=== PATIENT | female | born 1995 | race Caucasian/White ===

== ENCOUNTER → 2018-01-02 | Outpatient (REF) | payer BC | LOC: M LAB REF 13:49 | DX: Z12.4 Encounter for screening for malignant neoplasm of cervix (principal) | CPT/HCPCS: G0123 ==

== ENCOUNTER → 2018-03-17 | Outpatient (CLI) | payer BC ==
[2018-03-17 17:30] LABS: BASO # 0.1 10^3/uL (0.0-0.2); BASO % 0.5 % (0.0-1.0); EOS # 0.2 10^3/uL (0.0-0.50); EOS % 1.1 % (0.0-3.0); HEMATOCRIT 37.4 % (36.0-47.0); HEMOGLOBIN 12.6 g/dl (12.0-15.5); IMMATURE GRANULOCYTE % 0.3 % (0-3.0); LYMPH # 3.2 10^3/uL (1.5-6.5); MEAN CORPUSCULAR HEMOGLOBIN 29.9 pg (27.0-33.0); MEAN CORPUSCULAR HGB CONC 33.7 g/dl (32.0-36.5); MEAN CORPUSCULAR VOLUME 88.8 fl (80.0-96.0); MONO # 0.9 10^3/uL (0.0-0.8); NEUTROPHILS # 8.9 10^3/uL (1.8-7.7); NEUTROPHILS % 67.1 % (36.0-66.0); PLATELET COUNT, AUTOMATED 209 10^3/uL (150-450); RED BLOOD COUNT 4.21 10^6/uL (4.00-5.40); RED CELL DISTRIBUTION WIDTH 11.6 % (11.5-14.5); WHITE BLOOD COUNT 13.2 10^3/uL (4.0-10.0)
[2018-03-17 21:26] LABS: CHLAMYDIA DNA AMPLIFICATION NEGATIVE (NEGATIVE); GC DNA AMPLIFICATION NEGATIVE (NEGATIVE)
[2018-03-20 11:32] LABS: HBsAg Prenatal NEGATIVE (NEGATIVE); HIV 1&2 SCREEN CENTAUR NEGATIVE (NEGATIVE); RUBELLA IgG QUALITATIVE IMMUNE (IMMUNE)
== END ==
LOC: M SMT 15:17
DX: Z34.81 Encounter for supervision of other normal pregnancy, first trimester (principal); Z36.89 Encounter for other specified antenatal screening; Z3A.09 9 weeks gestation of pregnancy
CPT/HCPCS: 86762

== ENCOUNTER → 2018-06-02 | Outpatient (CLI) | payer OTHER ==
--- NOTE | 2018-06-02 10:58 | REP ---
OBSTETRIC SONOGRAPHY: HISTORY: Supervision of . For anatomy. FINDINGS: Scanning through the gravid uterus demonstrates a viable single intrauterine gestation in a cephalic lie. motion is observed and heart rate is recorder 153 beats per minute. An anterior grade 1 placenta is seen without evidence of previa or abruption. Amniotic fluid is subjectively normal. Closed cervical length is 4.4 cm. No extrauterine abnormalities observed. No anomaly is seen. The left and right ventricular cardiac outflow tract views are less than optimally seen due to lie. The following additional anatomic structures are identified and felt to be sonographically unremarkable: cranium, choroid plexus, cavum, cerebellum posterior fossa, face and profile, lungs, four-chamber heart, diaphragm, left-sided stomach, abdominal wall cord insertion, three-vessel cord, kidneys and bladder, spine, upper and lower extremities. Biometry Chart: BPD 4.5 cm = 19 weeks 5 days HC 16.7 cm = 19 weeks 2 days AC 14.3 cm = 19 weeks 5 days FL 3.2 cm = 19 weeks 6 days HL 3.1 cm = 20 weeks 3 days CD 1.9 cm = 18 weeks 5 days HC/AC ratio normal 1.16 Cephalic index normal 0.76. Estimated weight 308 grams, 0 pounds 10 ounces, 37th percentile for 20 weeks 0 days. IMPRESSION: Viable single intrauterine gestation at 19 weeks 3 days by today's composite sonographic criteria. ROSALEE by today's sonography October 24, 2018. anatomic survey is complete except for visualization of the left and right ventricular cardiac outflow tracts. Electronically Signed by Antoni Sunshine MD 06/02/2018 07:49 P
== END ==
LOC: M SMT 08:31
PROVIDERS: ATTEND Specialist
DX: Z36.89 Encounter for other specified antenatal screening (principal); Z3A.19 19 weeks gestation of pregnancy

== ENCOUNTER → 2018-06-26 | Outpatient (CLI) | payer OTHER ==
--- NOTE | 2018-06-26 09:15 | REP ---
Obstetric ultrasound for anatomy follow-up: Comparison is 06/02/2018. On the comparison study. The cardiac right and left ventricular outflow tracts could not optimally be demonstrated. The anatomy previously otherwise was unremarkable. On the study today there is again a single intrauterine gestation. The fetus is in a footling breech presentation. The placenta is anterior without previa or abruptio. The inferior tip of the placenta is 4.5 cm above the internal cervical os. heart rate is 147 beats per minute. The cervix measures 5.4 cm length. By the ultrasound today the gestational age is 22 weeks 4 days/ROSALEE 10/26/2018. By the first ultrasound gestational age is 23 weeks 3 days/ROSALEE 10/20/2018. By LMP the gestational age is 23 weeks 3 days/ROSALEE 10/20/2018. weight is 542 grams (1 pound, 3 ounces). This is the 29th percentile for 20 3 weeks 3 days. anatomy: The right and left cardiac ventricular outflow tracts are adequately demonstrated and are unremarkable. The following anatomic structures are again identified and are unremarkable: Intracranial lateral ventricles. Choroid plexus Cerebellum Face Upper lip. The lungs Four-chamber heart Diaphragm. Stomach. Cord insertion. Three-vessel cord. Kidneys Bladder Spine Upper lower extremities The facial profile is not optimally demonstrated on the study today, however, was adequately demonstrated previously. No anomalies are identified Electronically Signed by Tal Cooper MD 06/26/2018 09:07 A
== END ==
LOC: M SMT 07:48
PROVIDERS: ATTEND Obstetrics & Gynecology
DX: O32.8XX0 Maternal care for other malpresentation of fetus, not applicable or unspecified (principal); Z36.2 Encounter for other antenatal screening follow-up; Z3A.23 23 weeks gestation of pregnancy

== ENCOUNTER → 2018-07-11 | Outpatient (CLI) | payer OTHER ==
[2018-07-11 13:53] LABS: HEMATOCRIT 34.9 % (36.0-47.0); HEMOGLOBIN 11.5 g/dl (12.0-15.5); MEAN CORPUSCULAR HEMOGLOBIN 31.2 pg (27.0-33.0); MEAN CORPUSCULAR VOLUME 94.6 fl (80.0-96.0); PLATELET COUNT, AUTOMATED 215 10^3/uL (150-450); RED BLOOD COUNT 3.69 10^6/uL (4.00-5.40); WHITE BLOOD COUNT 15.2 10^3/uL (4.0-10.0)
== END ==
LOC: M SMT 09:06
PROVIDERS: ATTEND Obstetrics & Gynecology
DX: Z36.89 Encounter for other specified antenatal screening (principal)

== ENCOUNTER → 2018-09-20 | Outpatient (REF) | payer OTHER | LOC: M LAB REF 12:54 | PROVIDERS: ATTEND Specialist | DX: Z34.03 Encounter for supervision of normal first pregnancy, third trimester (principal); Z3A.00 Weeks of gestation of pregnancy not specified ==

== ENCOUNTER → 2018-10-04 | Outpatient (CLI) | payer OTHER ==
[~2018-10-04] MED LIST: COLA100C5 PO; IBUP-1114 PO; MAPA500T2 PO; MOM30SS PO; PERC5TAB12 PO; PRENTAB9 PO
[2018-10-04 10:27] LABS: HEMATOCRIT 35.8 % (36.0-47.0); HEMOGLOBIN 11.5 g/dl (12.0-15.5); MEAN CORPUSCULAR HEMOGLOBIN 29.5 pg (27.0-33.0); MEAN CORPUSCULAR HGB CONC 32.1 g/dl (32.0-36.5); MEAN CORPUSCULAR VOLUME 91.8 fl (80.0-96.0); PLATELET COUNT, AUTOMATED 232 10^3/uL (150-450); WHITE BLOOD COUNT 15.6 10^3/uL (4.0-10.0)
[2018-10-04 10:49] LABS: CREATININE,RANDOM URINE 60.2 MG/DL
[2018-10-04 10:51] LABS: ALT/SGPT 13 U/L (12-78); BILIRUBIN,TOTAL 0.2 MG/DL (0.2-1.0); CREATININE FOR GFR 0.52 MG/DL (0.55-1.30); GLOMERULAR FILTRATION RATE > 60.0 (>60); LDH LACTATE DEHYDROGENASE 172 U/L (84-246)
== END ==
LOC: M SMT 09:09
PROVIDERS: ATTEND Advanced Practice Midwife
DX: O16.3 Unspecified maternal hypertension, third trimester (principal); Z3A.00 Weeks of gestation of pregnancy not specified

== ENCOUNTER 2018-10-05 08:37 | Inpatient (IN) | payer OTHER ==
[~2018-10-05] VITALS: Ht 162.6 cm; Wt 78.3 kg
[2018-10-05] VITALS (20 sets, daily range): BP systolic 109–140; BP diastolic 55–87
[2018-10-05] MEDS ORDERED: PRENTAB9 PO (08:54)
[2018-10-05] MEDS ORDERED: MAPA500T2 PO (08:54)
[2018-10-05] MEDS: miSOPROStol 50 MCG 1/2 TAB (S0191) SL SCH ×2 (10:09→14:04)
[2018-10-05 10:16] LABS: MEAN CORPUSCULAR HEMOGLOBIN 29.5 pg (27.0-33.0); MEAN CORPUSCULAR HGB CONC 32.4 g/dl (32.0-36.5); MEAN CORPUSCULAR VOLUME 91.2 fl (80.0-96.0); PLATELET COUNT, AUTOMATED 219 10^3/uL (150-450); RED BLOOD COUNT 3.73 10^6/uL (4.00-5.40); WHITE BLOOD COUNT 14.6 10^3/uL (4.0-10.0)
--- NOTE | 2018-10-05 10:28 | HPE ---
DATE OF ADMISSION: 10/05/2018 HISTORY: 23-year-old, (G) 1, para (P) 0 female, at 38-0/7 weeks gestation by last menstrual period (LMP) consistent with 8 week ultrasound, estimated date of confinement (EDC) of 10/19/2018, presents for labor induction with the indication of gestational hypertension. She blood pressure in the office at 170/70, which was confirmed on repeat. She has had a headache for 3-4 days unrelieved by medications. She denies contractions or vaginal bleeding. She has had increased swelling in her lower extremities. COURSE: The patient initiated care at 9 weeks gestation on 03/17/2018. Her first trimester blood pressure was 110/66, weight 137 pounds. course unremarkable until she started developing an elevated blood pressure on 10/04/2018. MEDICAL HISTORY: Noncontributory. SURGICAL HISTORY: 1. Cyst removed from her left wrist. 2. Excision of pilonidal cyst. ALLERGIES: AMOXICILLIN. SOCIAL HISTORY: The patient is . She denies cigarettes, alcohol or drug use. Lives in [place]. FAMILY HISTORY: Noncontributory. PHYSICAL EXAM: Blood pressure 135/74. Pulse 107. Respiratory rate 16. She is in no apparent distress. Head and neck exam normal. Lungs: Clear. Heart: Regular rate and rhythm. Abdomen: Nontender, gravid. heart tones category 1. Contractions irregular. Sterile vaginal exam: 1 cm, 50% and -2, posterior, soft vertex. Extremities: Nontender with 1+ lower extremity edema. LABS: Blood type A positive. Rubella immune. RPR nonreactive. Hepatitis B and C negative. HIV negative. GBS negative on 09/20/2018. ASSESSMENT: 23-year-old, 1, para 0 female, at 38-0/7 weeks gestation with gestational hypertension as well as headaches unresolved with medication. PLAN: Admit for labor induction. The patient is admitted on 10/05/2018. Risks and benefits were discussed.
[2018-10-05] MEDS ORDERED: OXYTOCIN DRIP 30 UNITS in APPROPRIATE DILUENT 1 EA IV SCH (20:00)
[2018-10-05] MEDS: LR 1,000 ML IV SCH (21:08)
[2018-10-06] VITALS (27 sets, daily range): BP systolic 100–143; BP diastolic 54–82
[2018-10-06] MEDS ORDERED: PROMETHAZINE INJ 25 MG/ML VIAL (J2550) IV ONE (08:15)
[2018-10-06] MEDS ORDERED: BUTORPHANOL 2 MG/ML INJ (J0595) IV ONE (08:15)
[2018-10-06] MEDS: LR 1,000 ML IV SCH ×2 (09:38→13:15)
--- NOTE | 2018-10-06 09:45 | IPNPDOC ---
Text Note Date of Service The patient was seen on 10/06/18. NOTE Pitocin off 0745 for intermittent late decelerations, variability maintained. Cat II UC now Q 4-5 minutes x 45-60 seconds FH Cat I, 150 baseline SVE /50/-2 Cooks cather placed using speculum, inflated with 60/40cc Pt tolerated procedure well. Resume pitocin @ 2 mu. Stadol and phenergan started for comfort Reassess in a few hours or prn Dr Lubin updated. A-FIB/CHADSVASC A-FIB History Current/History of A-Fib/PAF?: No Current PO Anticoag Therapy: No VS,Fishbone, I+O VS, Fishbone, I+O Laboratory Tests 10/05/18 10:03 Red Blood Count 3.73 L, Mean Corpuscular Volume 91.2, Mean Corpuscular Hemoglobin 29.5, Mean Corpuscular Hemoglobin Concent 32.4, Red Cell Distribution Width 12.2 Vital Signs Date Time Temp Pulse Resp B/P (MAP) Pulse Ox O2 Delivery O2 Flow Rate FiO2 10/06/18 09:22 18 10/06/18 07:18 98.4 71 121/68 (85) I&O- Last 24 Hours up to 6 AM 10/06/18 06:00 Intake Total 4262 ml Output Total 2450 ml Balance 1812 ml Akilah Cruz CNM October 06, 2018 09:45
--- NOTE | 2018-10-06 14:10 | IPNPDOC ---
Text Note Date of Service The patient was seen on 10/06/18. NOTE Pitocin has been off x 2 hours for Cat II tracing, variable and late decelerations Cat I tracing with UC 4-5 minutes apart, Cooks Catheter in place Pt status rviewed with Dr Lubin. Rec resuming pitocin at this time. VS,Fishbone, I+O VS, Fishbone, I+O Vital Signs Date Time Temp Pulse Resp B/P (MAP) Pulse Ox O2 Delivery O2 Flow Rate FiO2 10/06/18 12:23 98.5 63 18 116/60 (78) I&O- Last 24 Hours up to 6 AM 10/06/18 06:00 Intake Total 4262 ml Output Total 2450 ml Balance 1812 ml Akilah Cruz CNM October 06, 2018 14:10
[2018-10-06 14:33] LABS: HEMATOCRIT 32.1 % (36.0-47.0); HEMOGLOBIN 10.3 g/dl (12.0-15.5); MEAN CORPUSCULAR HEMOGLOBIN 30.1 pg (27.0-33.0); MEAN CORPUSCULAR HGB CONC 32.1 g/dl (32.0-36.5); MEAN CORPUSCULAR VOLUME 93.9 fl (80.0-96.0); PLATELET COUNT, AUTOMATED 201 10^3/uL (150-450); RED BLOOD COUNT 3.42 10^6/uL (4.00-5.40); WHITE BLOOD COUNT 16.6 10^3/uL (4.0-10.0)
--- NOTE | 2018-10-06 15:19 | IPNPDOC ---
Text Note Date of Service The patient was seen on 10/06/18. NOTE Catheter has been in place 5.5 hours Unable to adequately augment labor, currently tachycardic 170-180, Cat II Pitocin 6 mu, now off SVE catheter remains firmly in place, approximately 2cm dilation Dr Lubin alerted for section VS,Fishbone, I+O VS, Fishbone, I+O Laboratory Tests 10/06/18 14:17 Red Blood Count 3.42 L, Mean Corpuscular Volume 93.9, Mean Corpuscular Hemoglobin 30.1, Mean Corpuscular Hemoglobin Concent 32.1, Red Cell Distribution Width 12.0 Vital Signs Date Time Temp Pulse Resp B/P (MAP) Pulse Ox O2 Delivery O2 Flow Rate FiO2 10/06/18 14:34 81 117/66 (83) 10/06/18 14:05 97.9 18 I&O- Last 24 Hours up to 6 AM 10/06/18 06:00 Intake Total 4262 ml Output Total 2450 ml Balance 1812 ml Akilah Cruz CNM October 06, 2018 15:19
[2018-10-06] MEDS ORDERED: LACTATED RINGER'S 1000 ML IV STA (15:20)
[2018-10-06] MEDS ORDERED: AZITHROMYCIN INJ 500MG VIAL (J0456) As Ordered ONE (15:22)
[2018-10-06] MEDS ORDERED: NALOXONE INJ 0.4 MG/1 ML VIAL (J2310) IV PRN ×2 (16:00)
[2018-10-06] MEDS ORDERED: AZITHROMYCIN INJ 500 MG, VIAL MATE ADAPTER 1 EACH in D5W 250 ML IV ONE (16:00)
[2018-10-06] MEDS ORDERED: diphenhydrAMINE INJ 50MG/ML VIAL (J1200) IV PRN (16:00)
[2018-10-06] MEDS ORDERED: METOCLOPRAMIDE INJ 10MG/2ML VIAL (J2765) IV PRN (16:00)
[2018-10-06] MEDS ORDERED: BICITRA 30ML SOLN UDC PO ONE (16:00)
[2018-10-06] MEDS ORDERED: NALBUPHINE HCL 10 MG/ML AMP (J2300) IV PRN (16:00)
[2018-10-06] MEDS ORDERED: ONDANSETRON 4MG/2ML VIAL (J2405) IV PRN ×3 (16:00→17:15)
[2018-10-06] MEDS ORDERED: MORPHINE PRES-FREE INJ 10 MG/10 ML VIAL (J2274) As Ordered ONE (16:20)
[2018-10-06] MEDS ORDERED: LR 1,000 ML IV SCH ×2 (17:01→17:15)
[2018-10-06] MEDS ORDERED: OXYTOCIN DRIP 30 UNITS in APPROPRIATE DILUENT 1 EA IV SCH (17:01)
[2018-10-06 17:10] LABS: CORD GAS ABE V -2.4; CORD GAS HCO3 V 23.4 MEQ/L; CORD GAS O2 SAT V 73.6 %; CORD GAS PH V 7.344 UNITS; CORD GAS PO2 V 32.1 mmHg; CORD GAS SBC V 21.8 MEQ/L; CORD GAS TCO2 V 24.8 MEQ/L
[2018-10-06 17:15] LABS: CORD GAS HCO3 A 25.8 MEQ/L; CORD GAS O2 SAT A 43.6 %; CORD GAS PCO2 A 55.2 mmHg; CORD GAS PH A 7.288 UNITS; CORD GAS PO2 A 21.1 mmHg; CORD GAS SBC A 21.3 MEQ/L; CORD GAS TCO2 A 27.5 MEQ/L
[2018-10-06] MEDS ORDERED: PROMETHAZINE INJ 25 MG/ML VIAL (J2550) IV PRN (17:15)
[2018-10-06] MEDS ORDERED: MEASLES,MUMPS,RUBELLA VACCINE INJ (MMR-II) (90707) SC SCH (17:15)
[2018-10-06] MEDS ORDERED: MOM 30ML SUSPENSION UDC PO PRN (17:15)
[2018-10-06] MEDS ORDERED: KETOROLAC 30 MG/ML VIAL (J1885) IV PRN (17:15)
[2018-10-06] MEDS ORDERED: PERCOCET 5MG/325MG TAB PO PRN ×3 (17:15)
[2018-10-06] MEDS ORDERED: fentaNYL 100 MCG/2 ML INJECTION (J3010) IV PRN (17:15)
[2018-10-06] MEDS ORDERED: RHOGAM 300 MCG (1500 IU) INJ (J2790) IM SCH (17:15)
[2018-10-06] MEDS ORDERED: KETOROLAC 30 MG/ML VIAL (J1885) As Ordered ONE (17:29)
[2018-10-06] MEDS ORDERED: OXYTOCIN 30 UNITS IN 0.9% NaCl 500ML IV BAG (J2590) As Ordered ONE (17:29)
--- NOTE | 2018-10-06 17:38 | RO ---
DATE OF PROCEDURE: 10/06/2018 PREOPERATIVE DIAGNOSES: 1. Inability to augment labor with persistent category II heart rate tracing. 2. Gestational hypertension. POSTOPERATIVE DIAGNOSES: 1. Inability to augment labor with persistent category II heart rate tracing. 2. Gestational hypertension. PROCEDURE PERFORMED: Primary low transverse section. SURGEON: Sarah Lubin MD TIN WHIZ MACHINE OPERATOR: None. ANESTHESIA: Spinal. ESTIMATED BLOOD LOSS: 700 mL. INTRAVENOUS FLUIDS: 1500 mL of lactated Ringer's solution. URINE OUTPUT: 275 mL. SPECIMENS: Cord gases. OPERATIVE FINDINGS: Live born male infant, scores 8 and 9, weight was 6 pounds 6 ounces, 2890 grams. PREOPERATIVE ANTIBIOTICS: 2 grams of Ancef and azithromycin. INDICATION FOR OPERATION: Mrs. Ocampo is a 23-year-old 1 who presented for induction of labor secondary to gestational hypertension. Her labor was initiated with misoprostol and was switched to Pitocin augmentation secondary to late decelerations on misoprostol. There was a Cooks catheter that was placed as well. Throughout her induction course, Pitocin was discontinued several times secondary to category II tracing with late decelerations. Despite Pitocin being discontinued, she continued to have a persistent category II heart rate tracing with tachycardia and variable decelerations at which time she was consented for section with the above indication. DESCRIPTION OF PROCEDURE: After informed consent was obtained and written consent was reviewed, the patient was taken to the operating room where spinal anesthesia was placed. She was then placed in the supine position with a left lateral tilt. Post catheter was placed and set to gravity. She was then prepped and draped in a normal sterile fashion. A time-out in the operating room was then performed identifying the patient, procedure to be performed, as well as drug allergies. Anesthesia was tested and deemed to be adequate. A Pfannenstiel skin incision was then made, and this was carried down to the underlying rectus fascia. The fascia was scored, and this was extended bilaterally. The fascia was then dissected off the underlying rectus muscles both superiorly and inferiorly. The rectus muscles were in the midline. The peritoneum was then entered sharply. The vesicouterine peritoneum was then identified, it was then excised to create a bladder flap. Mobius retractor was then placed. A curvilinear incision was then made in the lower uterine segment. Amniotomy was productive of clear fluid. The head was brought to the level of the incision atraumatically and was delivered along with shoulders and corpus. Cord was clamped times two and was cut. The infant was then taken over to the warmer with a good cry. Cord gases were obtained. Placenta was then drained and delivered grossly intact. The uterus then was cleared of all clots and debris. The uterus was then closed in two layers using #0 Vicryl, first in a running locking fashion followed by a second layer for imbrication in a running nonlocking fashion. The abdomen was then suctioned. The uterine incision was reinspected and noted be hemostatic. The Mobius retractor was then removed. The anterior peritoneum was then reapproximated with #3-0 Vicryl. The rectus muscles were reapproximated with #3-0 Vicryl. The fascia was then closed with #0 Vicryl in a running nonlocking fashion. The subcutaneous tissue was then irrigated and suctioned. The subcutaneous tissue was then reapproximated with #3-0 Vicryl. Several subdermal stitches were placed of #3-0 Vicryl, and the skin was closed with #4-0 Monocryl in a subcuticular fashion. The incision was then cleaned. The patient was then taken to recovery in stable condition. Counts were correct. MTDD
[2018-10-06] MEDS: KETOROLAC 30 MG/ML VIAL (J1885) IV SCH (18:00)
[2018-10-06] MEDS: DOCUSATE SODIUM 100 MG CAP PO SCH (21:18)
[2018-10-07] MEDS: KETOROLAC 30 MG/ML VIAL (J1885) IV SCH ×3 (00:27→12:24)
[2018-10-07 02:00] VITALS: BP 115/61
[2018-10-07 05:46] VITALS: BP 125/70
--- NOTE | 2018-10-07 07:26 | IPNPDOC ---
Text Note Date of Service The patient was seen on 10/07/18. NOTE Postop #1 Feels well. OOB. Due to void. VSS, afebrile, normotensive Breasts soft Fundus firm Dressing intact Lochia rubra light without odor Legs negative PO #1 Routine care. Anticipate D/C janette VS,Fishbone, I+O VS, Fishbone, I+O Laboratory Tests 10/06/18 14:17 Red Blood Count 3.42 L, Mean Corpuscular Volume 93.9, Mean Corpuscular Hemoglobin 30.1, Mean Corpuscular Hemoglobin Concent 32.1, Red Cell Distribution Width 12.0 Vital Signs Date Time Temp Pulse Resp B/P (MAP) Pulse Ox O2 Delivery O2 Flow Rate FiO2 10/07/18 05:46 98.2 76 16 125/70 (88) 98 I&O- Last 24 Hours up to 6 AM 10/07/18 06:00 Intake Total 5125 ml Output Total 6200 ml Balance -1075 ml Akilah Cruz CNM October 07, 2018 07:26
[2018-10-07 07:36] LABS: HEMOGLOBIN 9.4 g/dl (12.0-15.5); MEAN CORPUSCULAR HGB CONC 32.4 g/dl (32.0-36.5); MEAN CORPUSCULAR VOLUME 92.7 fl (80.0-96.0); PLATELET COUNT, AUTOMATED 196 10^3/uL (150-450); RED BLOOD COUNT 3.13 10^6/uL (4.00-5.40); WHITE BLOOD COUNT 18.7 10^3/uL (4.0-10.0)
[2018-10-07] MEDS: PRENATAL VITAMINS CHEWABLE TABLET PO SCH (09:25)
[2018-10-07] MEDS: DOCUSATE SODIUM 100 MG CAP PO SCH ×2 (09:25→19:39)
[2018-10-07 10:00] VITALS: BP 122/68
[2018-10-07 14:00] VITALS: BP 112/59
[2018-10-07 17:36] VITALS: BP 120/69
[2018-10-07] MEDS: IBUPROFEN 800 MG TAB PO SCH (19:39)
[2018-10-07 22:00] VITALS: BP 133/78
[2018-10-08 02:00] VITALS: BP 116/55
[2018-10-08] MEDS: IBUPROFEN 800 MG TAB PO SCH ×2 (02:53→12:12)
[2018-10-08 06:00] VITALS: BP 116/59
[2018-10-08] MEDS: PRENATAL VITAMINS CHEWABLE TABLET PO SCH (08:34)
[2018-10-08] MEDS: DOCUSATE SODIUM 100 MG CAP PO SCH (08:34)
[2018-10-08] MEDS ORDERED: COLA100C5 PO (09:23)
[2018-10-08] MEDS ORDERED: IBUP-1114 PO (09:24)
[2018-10-08] MEDS ORDERED: MOM30SS PO (09:33)
[2018-10-08 09:51] VITALS: BP 111/63
[2018-10-08] MEDS ORDERED: PERC5TAB12 PO (10:15)
== END 2018-10-08 14:30 | disposition home or self-care (01) | DRG 788 ==
LOC: M LDI 08:37 → M OBS 10-06 18:27
PROVIDERS: ADMIT Specialist; ATTEND Specialist
PROC: 3E0DXGC Introduction of Other Therapeutic Substance into Mouth and Pharynx, External Approach (ICD-10-PCS; 2018-10-05)
PROC: 10D00Z1 Extraction of Products of Conception, Low, Open Approach (ICD-10-PCS; principal; 2018-10-06 15:20)
DX: O13.4 Gestational [pregnancy-induced] hypertension without significant proteinuria, complicating childbirth (principal); Z37.0 Single live birth; Z3A.38 38 weeks gestation of pregnancy; O61.0 Failed medical induction of labor

== ENCOUNTER → 2020-01-02 | Outpatient (REF) | payer OTHER ==
[2020-01-02 16:56] LABS: BASO # 0.1 10^3/uL (0.0-0.2); BASO % 0.5 % (0.0-1.0); EOS # 0.1 10^3/uL (0.0-0.5); EOS % 0.9 % (0.0-3.0); HEMATOCRIT 38.5 % (36.0-47.0); HEMOGLOBIN 12.6 g/dl (12.0-15.5); MEAN CORPUSCULAR HEMOGLOBIN 29.9 pg (27.0-33.0); MEAN CORPUSCULAR HGB CONC 32.7 g/dl (32.0-36.5); MEAN CORPUSCULAR VOLUME 91.2 fl (80.0-96.0); MONO # 1.1 10^3/uL (0.0-0.8); MONO % 8.2 % (0.0-5.0); NEUTROPHILS # 8.6 10^3/uL (1.5-8.5); NEUTROPHILS % 67.1 % (36.0-66.0); PLATELET COUNT, AUTOMATED 219 10^3/uL (150-450); RED BLOOD COUNT 4.22 10^6/uL (4.00-5.40); WHITE BLOOD COUNT 12.9 10^3/uL (4.0-10.0)
[2020-01-02 17:34] LABS: CHLAMYDIA DNA AMPLIFICATION NEGATIVE (NEGATIVE); GC DNA AMPLIFICATION NEGATIVE (NEGATIVE)
[2020-01-02 18:46] LABS: HEPATITIS C VIRUS ABY INDEX 0.2 INDEX (<0.8); HIV 1&2 SCREEN CENTAUR NEGATIVE (NEGATIVE)
== END ==
LOC: M LABSMT 13:37
PROVIDERS: ATTEND Advanced Practice Midwife
DX: O34.219 Maternal care for unspecified type scar from previous cesarean delivery (principal)

== ENCOUNTER → 2020-03-05 | Outpatient (CLI) | payer OTHER ==
--- NOTE | 2020-03-05 11:46 | REP ---
INDICATION: ANATOMY COMPARISON: None. TECHNIQUE: Transabdominal obstetrical ultrasound with color Doppler evaluation. FINDINGS: Examination demonstrates a single live intrauterine in variable presentation. motion is identified by technologist. Placenta is noted posterior and grade 1 without evidence for placenta previa or abruption. Amniotic fluid volume is normal. Cervix measures 4.2 cm in length and appears closed. No evidence for nuchal cord. Gestational age by LMP 18 weeks 5 days with ROSALEE 08/01/2020. Gestational age by current measurements 18 weeks 2 days with ROSALEE 08/04/2020. FHR equals 160 beats per minute. BPD: 4.0 cm 18 weeks 2 days HC: 15.0 cm 18 weeks 1 day AC: 12.4 cm 18 weeks 0 days FL: 2.7 cm 18 weeks 1 day HL: 2.7 cm 18 weeks 5 days HC/AC: 1.22 Estimated weight 223 grams (15thpercentile). Anatomical assessment demonstrates normal structures including cranium, choroid plexus, cavum, cerebellum/posterior fossa, facial features, lungs, four-chamber heart/ventricular outflow tracts, diaphragm, stomach, cord insertion/three-vessel cord, kidneys/bladder, spine, and extremities. Echogenic focus within the left cardiac ventricle likely prominent chordae tendineae. IMPRESSION: 1. Single live intrauterine demonstrating appropriate interval growth and estimated weight. 2. Images of the heart and left cardiac ventricular outflow tract demonstrate echogenic focus likely prominent chordae tendinae. Remainder of the anatomical assessment is complete and normal. <Electronically signed by Luis Hernandez > 03/05/20 [id number]
== END ==
LOC: M WHC 09:53
PROVIDERS: ATTEND Obstetrics & Gynecology
DX: Z34.92 Encounter for supervision of normal pregnancy, unspecified, second trimester (principal)

== ENCOUNTER → 2020-04-23 | Outpatient (REF) | payer OTHER ==
[2020-04-23 13:49] LABS: HEMATOCRIT 37.7 % (36.0-47.0); HEMOGLOBIN 11.9 g/dl (12.0-15.5); MEAN CORPUSCULAR HEMOGLOBIN 30.6 pg (27.0-33.0); MEAN CORPUSCULAR HGB CONC 31.6 g/dl (32.0-36.5); MEAN CORPUSCULAR VOLUME 96.9 fl (80.0-96.0); PLATELET COUNT, AUTOMATED 236 10^3/uL (150-450); RED BLOOD COUNT 3.89 10^6/uL (4.00-5.40)
== END ==
LOC: M PLALAB 10:08
PROVIDERS: ATTEND Advanced Practice Midwife
DX: Z3A.25 25 weeks gestation of pregnancy (principal)

== ENCOUNTER → 2020-07-09 | Outpatient (REF) | payer OTHER | LOC: M PLALAB 10:49 | PROVIDERS: ATTEND Obstetrics & Gynecology | DX: Z34.93 Encounter for supervision of normal pregnancy, unspecified, third trimester (principal); Z3A.36 36 weeks gestation of pregnancy ==

== ENCOUNTER → 2020-07-20 | Outpatient (CLI) | payer OTHER | LOC: M LABSMTC 08:00 | PROVIDERS: ATTEND Anesthesiology | DX: Z01.812 Encounter for preprocedural laboratory examination (principal); Z20.822 Contact with and (suspected) exposure to COVID-19 ==

== ENCOUNTER 2020-07-25 05:11 | Inpatient (IN) | payer OTHER ==
[2020-07-25] VITALS (9 sets, daily range): BP systolic 113–139; BP diastolic 56–78
[~2020-07-25] VITALS: Ht 162.6 cm; Wt 82.6 kg
[2020-07-25] MEDS ORDERED: LR 800 ML IV ONE (05:25)
[2020-07-25] MEDS ORDERED: BICITRA 30ML SOLN UDC PO ONE (05:25)
[2020-07-25] MEDS ORDERED: ceFAZolin SOD 2 GM in IV 1 EA IV ONE (05:25)
[2020-07-25] MEDS ORDERED: LR 1,000 ML IV SCH (05:25)
[2020-07-25 05:55] LABS: HEMATOCRIT 32.8 % (36.0-47.0); HEMOGLOBIN 10.5 g/dl (12.0-15.5); MEAN CORPUSCULAR HEMOGLOBIN 28.3 pg (27.0-33.0); MEAN CORPUSCULAR VOLUME 88.4 fl (80.0-96.0); PLATELET COUNT, AUTOMATED 257 10^3/uL (150-450); RED BLOOD COUNT 3.71 10^6/uL (4.00-5.40); WHITE BLOOD COUNT 17.5 10^3/uL (4.0-10.0)
[2020-07-25] MEDS ORDERED: MORPHINE PRES-FREE INJ 10 MG/10 ML VIAL (J2274) As Ordered ONE (06:56)
[2020-07-25] MEDS ORDERED: OXYTOCIN INJ 10 UNITS/ML VIAL (J2590) As Ordered ONE (06:57)
[2020-07-25] MEDS ORDERED: dexameTHASONE 4 MG/ML 1ML VIAL (J1100 PER 1MG) As Ordered ONE (08:07)
[2020-07-25] MEDS ORDERED: ONDANSETRON 4MG/2ML VIAL As Ordered ONE (08:07)
[2020-07-25] MEDS ORDERED: PHENYLephrine 500MCG 5ML (100MCG/ML) SYRINGE As Ordered ONE (08:08)
[2020-07-25] MEDS ORDERED: ePHEDrine SULFATE 25 MG/5 ML(5MG/ML) SYRINGE As Ordered ONE (08:08)
[2020-07-25] MEDS ORDERED: KETOROLAC 60MG 2ML VIAL As Ordered ONE (08:18)
[2020-07-25] MEDS ORDERED: OXYTOCIN DRIP 30 UNITS in IV 1 EA IV SCH (09:26)
[2020-07-25] MEDS ORDERED: SIMETHICONE 80MG CHEW TAB PO PRN (09:30)
[2020-07-25] MEDS ORDERED: MEASLES,MUMPS,RUBELLA VACCINE INJ (MMR-II) (90707) SC SCH (09:30)
[2020-07-25] MEDS ORDERED: RHOGAM 300 MCG (1500 IU) INJ (J2790) IM SCH (09:30)
[2020-07-25] MEDS ORDERED: PERCOCET 5MG/325MG TAB PO PRN ×2 (09:30)
[2020-07-25] MEDS ORDERED: OXYTOCIN 30 UNITS IN 0.9% NaCl 500ML IV BAG (J2590) As Ordered ONE (09:38)
[2020-07-25] MEDS ORDERED: IBUP80TA PO (09:39)
[2020-07-25] MEDS ORDERED: PERCOCET PO (09:39)
[2020-07-25] MEDS ORDERED: DOK1CAP7 PO (09:39)
[2020-07-25] MEDS ORDERED: NALBUPHINE HCL 10 MG/ML AMP (J2300) IV PRN ×2 (09:40→16:05)
[2020-07-25] MEDS ORDERED: ONDANSETRON 4MG/2ML VIAL IV PRN ×2 (09:40→11:05)
[2020-07-25] MEDS ORDERED: MEPERIDINE INJ 25 MG/ML VIAL (J2175) IV PRN (09:40)
[2020-07-25] MEDS ORDERED: oxyCODONE 5MG TAB PO PRN (09:40)
[2020-07-25] MEDS ORDERED: HYDROMORPHONE HCL 0.5 MG/ 0.5 ML SYRINGE (J1170 PER 1) IV PRN (09:40)
[2020-07-25] MEDS ORDERED: fentaNYL 100 MCG/2 ML INJECTION (J3010) IV PRN (09:40)
[2020-07-25] MEDS: LR 1,000 ML IV SCH ×2 (10:15→17:34)
--- NOTE | 2020-07-25 12:22 | RO ---
OPERATIVE NOTE DATE OF OPERATION: 07/25/2020 PREOPERATIVE DIAGNOSIS: History of prior section with single intrauterine at term. POSTOPERATIVE DIAGNOSIS: History of prior section with single intrauterine at term. PROCEDURE PERFORMED: Repeat low transverse section. SURGEON: Adriana French MD [employer]: EH Villatoro ANESTHESIA: spinal INDICATION FOR OPERATION: Maria D is a 24-year-old G2, now P2,0,0,2 with history of prior section declining TOLAC and desiring repeat . MATERIAL FORWARDED TO THE LAB FOR EXAMINATION: Cicatrix. DESCRIPTION OF FINDINGS: Male infant in OT presentation, Apgars 9 and 9. Weight 3210 gm or 7 pounds 1 ounce. Normal appearing uterus, fallopian tubes and ovaries. INFECTION CLASSIFICATION: 2. ESTIMATED BLOOD LOSS: 500 mL. URINE OUTPUT: 150 mL of clear yellow urine. IV FLUIDS: 1700 mL of lactated Ringer's. DESCRIPTION OF PROCEDURE: After obtaining informed consent the patient was taken to the operating room. She had a reactive heart rate tracing prior. She received spinal anesthesia and Post catheter and bilateral sequential compression devices were placed. She received 2 gm of IV Ancef prophylactically. She was prepped and draped in normal sterile fashion in dorsal supine position with left lateral tilt. Time out was performed to confirm patient name, date of , procedure and indication, the team was in agreement. Spinal anesthesia was found to be adequate using an Allis clamp. Pfannenstiel skin incision was made with scalpel and carried through to the underlying layer of fascia. The left side of her incision had some keloiding and was more darkly pigmented so I made an incision around that part, undermined it, and that was sent to pathology as cicatrix specimen. Fascia was incised in the midline and the incision was extended laterally with Galan scissors. Superior and inferior aspects of the fascial incision were grasped with Lesly clamps, elevated and underlying rectus muscles were dissected off bluntly and sharply. Peritoneum was entered digitally and rectus muscles were in the midline. Peritoneal incision was extended superiorly and inferiorly with good visualization of the bladder. The Mobius retractor was inserted. Vesicouterine peritoneum was identified, grasped with pickups and entered sharply with Metzenbaum scissors. Incision was extended laterally and bladder flap created digitally. Lower uterine segment was then scored in transverse fashion with scalpel. The uterus was entered bluntly and the incision was extended with traction with clear amniotic fluid noted. Allis was used to break the amniotic sac. 's head was OT and elevated to the level of the incision. Fundal pressure was applied. Head was delivered atraumatically. Anterior shoulder, posterior shoulder and corpus were delivered without difficulty. Nose and mouth were suctioned with bulb suction, cord was clamped x2 and cut. was handed off to the awaiting team. Placenta was removed with uterine massage and firm traction on the cord. The uterus was left in situ and cleared of all clot and debris. Uterine incision was repaired with #0 Vicryl suture in running locking fashion and second layer of #0 Monocryl was used to close the hysterotomy incision in imbricating fashion. Uterine incision was inspected, hemostasis was noted. Gutters were cleared of all clot and then the peritoneum was closed after removing the Mobius retractor using 3-0 Vicryl suture in running fashion. Rectus muscles were reapproximated with [id number] stitches using #0 Vicryl suture, fascia was reapproximated with #0 Vicryl suture in running fashion, subcutaneous tissue was copiously irrigated. Brett's fascia was reapproximated using 3-0 Vicryl suture in running fashion, skin edges were reapproximated using three inverted interrupted stitches using 3-0 Vicryl suture followed by running subcuticular stitch using 4-0 Monocryl suture. Incision was cleaned using wet lap, dried with dry lap, Steri-Strips were applied in the usual fashion perpendicular to the Pfannenstiel incision and then Optifoam dressing was placed overlying. The vagina was cleared of all blood clot without active bleeding noted. Fundus was firm at U-1. Sponge, lap, needle counts all correct x2. Procedure was without complications. The patient tolerated the procedure well, she was taken to the recovery room on labor and delivery in stable condition. SHASHI
[2020-07-25] MEDS: KETOROLAC 30 MG/ML 1ML VIAL IV SCH ×2 (15:43→21:09)
[2020-07-25] MEDS ORDERED: PROMETHAZINE INJ 25 MG/ML VIAL (J2550) IV PRN (16:05)
[2020-07-25] MEDS: DOCUSATE SODIUM 100MG CAPSULE PO SCH (21:09)
[2020-07-26] MEDS: LR 1,000 ML IV SCH ×3 (01:26→17:26)
[2020-07-26 02:00] VITALS: BP 113/53
[2020-07-26] MEDS: KETOROLAC 30 MG/ML 1ML VIAL IV SCH (03:33)
[2020-07-26 07:46] LABS: HEMATOCRIT 28.9 % (36.0-47.0); HEMOGLOBIN 8.9 g/dl (12.0-15.5); MEAN CORPUSCULAR HEMOGLOBIN 28.2 pg (27.0-33.0); MEAN CORPUSCULAR HGB CONC 30.8 g/dl (32.0-36.5); MEAN CORPUSCULAR VOLUME 91.5 fl (80.0-96.0); PLATELET COUNT, AUTOMATED 225 10^3/uL (150-450); RED BLOOD COUNT 3.16 10^6/uL (4.00-5.40); WHITE BLOOD COUNT 19.5 10^3/uL (4.0-10.0)
[2020-07-26] MEDS: PRENATAL VITAMINS CHEWABLE TABLET PO SCH (08:23)
[2020-07-26] MEDS: DOCUSATE SODIUM 100MG CAPSULE PO SCH ×2 (08:23→20:16)
[2020-07-26 10:00] VITALS: BP 104/55
[2020-07-26] MEDS: IBUPROFEN 800 MG TAB PO SCH ×2 (11:54→18:44)
[2020-07-26 14:00] VITALS: BP 117/53
[2020-07-26 18:00] VITALS: BP 132/59
[2020-07-26 22:00] VITALS: BP 128/60
[2020-07-27 02:00] VITALS: BP 132/61
[2020-07-27] MEDS: IBUPROFEN 800 MG TAB PO SCH ×2 (03:04→11:32)
[2020-07-27 06:00] VITALS: BP 118/65
[2020-07-27] MEDS: PRENATAL VITAMINS CHEWABLE TABLET PO SCH (08:34)
[2020-07-27] MEDS: DOCUSATE SODIUM 100MG CAPSULE PO SCH (08:34)
--- NOTE | 2020-07-27 12:24 | IPNPDOC ---
Progress Note Date of Service: Jul 27, 2020 Day#: 2 Progress Note POD 2/PPD 2 SUBJECT: Maria D is a 24yo [id number] s/p uncomplicated RLTCS on 07/25 at term for history of prior declining TOLAC, doing well /post-op day # 2. She has been ambulating without dizziness/lightheadedness, voiding spontaneously without issue and tolerating regular diet without nausea/vomiting. without issue. Reports lochia is like a normal period. Pain overall well controlled with pain medication. Denies f/c/CP/SOB. OBJECTIVE: VITAL SIGNS: Normotensive, afebrile. Alert and oriented times three. Abdomen: Fundus firm at U-2. Soft, appropriately tender to palpation without rebound/guarding. Optifoam dressing covers pfannenstiel incision and is clean/dry. Extremities: no pain with palpation of calves Labs: pre-op H/H: 10.5/32.8 post-op H/H: 8.9/28.9 ASSESSMENT: Maria D is a 24yo [id number] s/p uncomplicated RLTCS on 07/25 at term for history of prior declining TOLAC, doing well /post- op day # 2. Vitals wnl, afebrile, hemodynamically stable with no evidence of infection. PLAN: 1. Discharge to home 2. Rx motrin with prn percocet for pain. Colace for bowel regimen. 3. Encouraged and ambulation 4. Regular diet 5. Discussed return precautions 6. Vaginal rest 6 weeks with no heavy lifting 7. Remove dressing in 1 week and keep the area clean/dry Adriana French MD VS, I&O, 24H, Fishbone Vital Signs/I&O Vital Signs Date Time Temp Pulse Resp B/P (MAP) Pulse Ox O2 Delivery O2 Flow Rate FiO2 07/27/20 06:00 97.3 81 16 118/65 (82) 96 Room Air Adriana French MD Jul 27, 2020 12:24
--- NOTE | 2020-07-27 12:27 | DS.PDOC ---
Discharge Summary General Date of Admission Jul 25, 2020 at 05:11 Date of Discharge Jul 27, 2020 Attending Physician: Adriana French MD Discharge Summary PROCEDURES PERFORMED DURING STAY: repeat low transverse section ADMITTING DIAGNOSES: 1. term IUP with history of prior section, declining TOLAC DISCHARGE DIAGNOSES: 1. term IUP with history of prior section, declining TOLAC 2. Delivered COMPLICATIONS/CHIEF COMPLAINT: Previous . HISTORY OF PRESENT ILLNESS/HOSPITAL COURSE: Maria D is a 24yo [id number] s/p uncomplicated RLTCS on 07/25 at term for history of prior declining TOLAC, doing well /post-op day # 2. She has had a benign course. At time of discharge, vitals were wnl, she was afebrile, hemodynamically stable with no evidence of infection. DISCHARGE MEDICATIONS: Please see below. ALLERGIES: Please see below. PHYSICAL EXAMINATION ON DISCHARGE: VITAL SIGNS: Normotensive, afebrile. Alert and oriented times three. Abdomen: Fundus firm at U-2. Soft, appropriately tender to palpation without rebound/guarding. Optifoam dressing covers pfannenstiel incision and is clean/dry. Extremities: no pain with palpation of calves LABORATORY DATA: Please see below. pre-op H/H: 10.5/32.8 post-op H/H: 8.9/28.9 DISCHARGE INSTRUCTIONS: 1. Discharge to home 2. Rx motrin with prn percocet for pain. Colace for bowel regimen. 3. Encouraged and ambulation 4. Regular diet 5. Discussed return precautions 6. Vaginal rest 6 weeks with no heavy lifting 7. Remove dressing in 1 week and keep the area clean/dry DISCHARGE CONDITION: Stable TIME SPENT ON DISCHARGE: Greater than 20 minutes. Vital Signs/I&Os Vital Signs Date Time Temp Pulse Resp B/P (MAP) Pulse Ox O2 Delivery O2 Flow Rate FiO2 07/27/20 06:00 97.3 81 16 118/65 (82) 96 Room Air Discharge Medications Scheduled Docusate Sodium (Dok) 100 Mg Capsule, 100 MG PO BID Ibuprofen (Ibuprofen) 800 Mg Tablet, 800 MG PO Q8H No.137/Iron/Folic Acd ( Vitamin Tablet) 1 Each Tablet, 1 TAB PO DAILY, (Reported) Scheduled PRN Oxycodone/Acetaminophen (Oxycodone-Acetaminophen 5-325) 1 Each Tablet, 1 TAB PO Q4H PRN for MILD/MODERATE PAIN (PS 1-7) Allergies Coded Allergies: amoxicillin (Verified Allergy, Unknown, RASH, 10/05/18) Adriana French MD Jul 27, 2020 12:27
[2020-07-27] MEDS ORDERED: FERR1TAB8 PO (12:29)
== END 2020-07-27 13:45 | disposition home or self-care (01) | DRG 788 ==
LOC: M LDI 05:11 → M OBS 10:47 → UNDODISIN 07-27 13:45
PROVIDERS: ADMIT Obstetrics & Gynecology; ATTEND Obstetrics & Gynecology
PROC: 10D00Z1 Extraction of Products of Conception, Low, Open Approach (ICD-10-PCS; principal; 2020-07-25 07:30)
DX: O34.211 Maternal care for low transverse scar from previous cesarean delivery (principal); Z37.0 Single live birth; Z3A.39 39 weeks gestation of pregnancy; Z88.0 Allergy status to penicillin

== ENCOUNTER → 2020-08-08 | Outpatient (REF) | payer OTHER ==
[~2020-08-08] MED LIST changes: +DOK1CAP7 PO; +FERR1TAB8 PO; +IBUP80TA PO; +PERCOCET PO
== END ==
LOC: M PLALAB 11:31
PROVIDERS: ATTEND Obstetrics & Gynecology
DX: R30.0 Dysuria (principal)

== ENCOUNTER → 2021-10-20 | Outpatient (REF) | payer OTHER ==
[~2021-10-20] MED LIST changes: +DOK1CAP4 PO; -DOK1CAP7 PO
== END ==
LOC: M SFHCWAGY 12:57
PROVIDERS: ATTEND Obstetrics & Gynecology
DX: Z12.4 Encounter for screening for malignant neoplasm of cervix (principal)

== ENCOUNTER → 2022-05-25 | Outpatient (REF) | payer OTHER | LOC: M PLALAB 10:20 | PROVIDERS: ATTEND Advanced Practice Midwife | DX: Z53.9 Procedure and treatment not carried out, unspecified reason (principal) ==

== ENCOUNTER → 2022-06-03 | Outpatient (CLI) | payer OTHER ==
[2022-06-03 14:10] LABS: HEMATOCRIT 39.6 % (36.0-47.0); HEMOGLOBIN 12.7 g/dl (12.0-15.5); MEAN CORPUSCULAR HEMOGLOBIN 29.7 pg (27.0-33.0); MEAN CORPUSCULAR HGB CONC 32.1 g/dl (32.0-36.5); MEAN CORPUSCULAR VOLUME 92.7 fl (80.0-96.0); PLATELET COUNT, AUTOMATED 190 10^3/uL (150-450); RED BLOOD COUNT 4.27 10^6/uL (4.00-5.40); WHITE BLOOD COUNT 6.8 10^3/uL (4.0-10.0)
[2022-06-03 15:00] LABS: HIV 1&2 SCREEN CENTAUR NEGATIVE (NEGATIVE)
[2022-06-03 16:17] LABS: GC DNA AMPLIFICATION NEGATIVE (NEGATIVE)
== END ==
LOC: M PLALAB 10:20
PROVIDERS: ATTEND Advanced Practice Midwife
DX: Z34.91 Encounter for supervision of normal pregnancy, unspecified, first trimester (principal); Z3A.00 Weeks of gestation of pregnancy not specified

== ENCOUNTER → 2022-08-03 | Outpatient (CLI) | payer OTHER | LOC: M WHC 08:17 | PROVIDERS: ATTEND Advanced Practice Midwife | DX: Z34.92 Encounter for supervision of normal pregnancy, unspecified, second trimester (principal); Z3A.19 19 weeks gestation of pregnancy ==

== ENCOUNTER → 2022-09-14 | Outpatient (CLI) | payer OTHER ==
[2022-09-14 14:07] LABS: HEMATOCRIT 37.2 % (36.0-47.0); HEMOGLOBIN 11.8 g/dl (12.0-15.5); MEAN CORPUSCULAR HEMOGLOBIN 30.6 pg (27.0-33.0); MEAN CORPUSCULAR HGB CONC 31.7 g/dl (32.0-36.5); MEAN CORPUSCULAR VOLUME 96.4 fl (80.0-96.0); PLATELET COUNT, AUTOMATED 213 10^3/uL (150-450); RED BLOOD COUNT 3.86 10^6/uL (4.00-5.40); WHITE BLOOD COUNT 14.2 10^3/uL (4.0-10.0)
[2022-09-14 16:12] LABS: GC DNA AMPLIFICATION NEGATIVE (NEGATIVE)
== END ==
LOC: M PLALAB 09:02
PROVIDERS: ATTEND Specialist
DX: Z34.82 Encounter for supervision of other normal pregnancy, second trimester (principal)

== ENCOUNTER → 2022-12-01 | Outpatient (REF) | payer OTHER | LOC: M PLALAB 10:36 | PROVIDERS: ATTEND Obstetrics & Gynecology | DX: Z3A.36 36 weeks gestation of pregnancy (principal) ==

== ENCOUNTER → 2022-12-09 | Outpatient (CLI) | payer OTHER ==
[2022-12-09 17:20] LABS: HEMOGLOBIN 10.3 g/dl (12.0-15.5); MEAN CORPUSCULAR HEMOGLOBIN 28.5 pg (27.0-33.0); MEAN CORPUSCULAR HGB CONC 31.2 g/dl (32.0-36.5); MEAN CORPUSCULAR VOLUME 91.2 fl (80.0-96.0); PLATELET COUNT, AUTOMATED 183 10^3/uL (150-450); RED BLOOD COUNT 3.62 10^6/uL (4.00-5.40); WHITE BLOOD COUNT 13.2 10^3/uL (4.0-10.0)
[2022-12-09 17:44] LABS: TOTAL PROTEIN,RANDOM URINE 6.6 MG/DL (0.0-14.0)
[2022-12-09 17:48] LABS: CREATININE,RANDOM URINE 48.9 MG/DL
[2022-12-09 17:49] LABS: URIC ACID 5.3 MG/DL (3.1-7.8)
[2022-12-09 17:50] LABS: LDH LACTATE DEHYDROGENASE 162 U/L (120-246)
[2022-12-09 17:52] LABS: ALT/SGPT < 9 U/L (7.0-40); AST/SGOT 9 U/L (<34); BILIRUBIN,TOTAL 0.3 MG/DL (0.3-1.2); CREATININE FOR GFR 0.45 MG/DL (0.55-1.30); GLOMERULAR FILTRATION RATE > 60.0 (>60)
== END ==
LOC: M PLALAB 16:14
PROVIDERS: ATTEND Advanced Practice Midwife
DX: Z34.83 Encounter for supervision of other normal pregnancy, third trimester (principal)

== ENCOUNTER 2022-12-20 05:07 | Inpatient (IN) | payer OTHER ==
[~2022-12-20] VITALS: Ht 162.6 cm; Wt 81.6 kg
[2022-12-20] VITALS (9 sets, daily range): BP systolic 100–135; BP diastolic 54–80; TEMP 97.7; O2SAT 95–99
[2022-12-20] MEDS ORDERED: LACTATED RINGER'S 1000 ML IV STA (05:23)
[2022-12-20] MEDS ORDERED: LR 1,000 ML IV SCH ×2 (05:25→09:20)
[2022-12-20] MEDS ORDERED: ceFAZolin SOD 2 GM in IV 1 EA IV ONE (05:25)
[2022-12-20] MEDS ORDERED: BICITRA 30ML SOLN UDC PO ONE ×2 (05:25→09:20)
[2022-12-20] MEDS ORDERED: HOME MED LIST COMPLETE! XX SCH (06:15)
[2022-12-20 06:17] LABS: HEMATOCRIT 32.7 % (36.0-47.0); HEMOGLOBIN 10.3 g/dl (12.0-15.5); MEAN CORPUSCULAR HEMOGLOBIN 27.8 pg (27.0-33.0); MEAN CORPUSCULAR HGB CONC 31.5 g/dl (32.0-36.5); MEAN CORPUSCULAR VOLUME 88.4 fl (80.0-96.0); PLATELET COUNT, AUTOMATED 170 10^3/uL (150-450); WHITE BLOOD COUNT 12.6 10^3/uL (4.0-10.0)
[2022-12-20] MEDS ORDERED: MORPHINE PRES-FREE INJ 10 MG/10 ML VIAL As Ordered ONE (07:17)
[2022-12-20] MEDS ORDERED: OXYTOCIN 30UNITS IN 0.9% NaCl 500ML IV BAG As Ordered ONE ×2 (07:20→09:13)
[2022-12-20] MEDS ORDERED: ONDANSETRON 4MG 2ML VIAL As Ordered ONE (07:39)
[2022-12-20] MEDS ORDERED: MOM 30ML SUSPENSION UDC PO PRN (07:55)
[2022-12-20] MEDS ORDERED: PERCOCET 5MG/325MG TAB PO PRN (07:55)
[2022-12-20] MEDS ORDERED: SIMETHICONE 80MG CHEW TAB PO PRN (07:55)
[2022-12-20] MEDS ORDERED: RHOGAM 300MCG (1500IU) INJ IM SCH (07:55)
[2022-12-20] MEDS: LR 1,000 ML IV SCH ×2 (07:55→21:00)
[2022-12-20] MEDS ORDERED: ePHEDrine SULFATE 25 MG/5 ML(5MG/ML) SYRINGE As Ordered ONE (08:04)
[2022-12-20] MEDS ORDERED: PHENYLephrine 500MCG 5ML (100MCG/ML) SYRINGE As Ordered ONE (08:10)
[2022-12-20] MEDS ORDERED: ACETAMINOPHEN 1000MG 100ML IV BAG As Ordered ONE (08:16)
[2022-12-20] MEDS ORDERED: KETOROLAC 60MG 2ML VIAL As Ordered ONE (08:16)
[2022-12-20] MEDS: PRENATAL VITAMINS CHEWABLE TABLET PO SCH (09:00)
[2022-12-20] MEDS: DOCUSATE SODIUM 100MG CAPSULE PO SCH ×2 (09:00→20:50)
[2022-12-20] MEDS ORDERED: diphenhydrAMINE 50MG/ML VIAL IV PRN (09:20)
[2022-12-20] MEDS ORDERED: SODIUM CHLORIDE 0.9% 1000ML IV STA (09:20)
[2022-12-20] MEDS ORDERED: ONDANSETRON 4MG 2ML VIAL IV PRN (09:20)
[2022-12-20] MEDS ORDERED: fentaNYL 100 MCG/2 ML INJECTION IV PRN (09:20)
[2022-12-20] MEDS ORDERED: oxyCODONE 5MG TAB PO PRN (09:20)
[2022-12-20] MEDS ORDERED: NALOXONE INJ 0.4MG/1ML VIAL IV PRN ×2 (09:20)
[2022-12-20] MEDS ORDERED: MEPERIDINE 25 MG/ML 1ML VIAL IV PRN (09:20)
[2022-12-20] MEDS: SLF 3 ML SYR IV SCH ×3 (09:20→21:00)
[2022-12-20] MEDS ORDERED: OXYTOCIN DRIP 30 UNITS in IV 1 EA IV SCH (09:20)
[2022-12-20] MEDS ORDERED: **NOTE PATIENT COMMENT** MISC XX SCH (09:20)
[2022-12-20] MEDS: METOCLOPRAMIDE INJ 10MG/2ML VIAL IV PRN ×2 (12:04→20:50)
[2022-12-20] MEDS: KETOROLAC 30 MG/ML 1ML VIAL IV SCH ×2 (14:50→20:50)
[2022-12-20] MEDS: ONDANSETRON 4MG 2ML VIAL IV PRN (17:04)
[2022-12-20] MEDS ORDERED: LR 1,000 ML IV ONE (17:05)
[2022-12-21 02:00] VITALS: BP 120/71; O2SAT 97
[2022-12-21] MEDS: LR 1,000 ML IV SCH (02:00)
[2022-12-21] MEDS: SLF 3 ML SYR IV SCH (02:00)
[2022-12-21] MEDS: ONDANSETRON 4MG 2ML VIAL IV PRN (02:10)
[2022-12-21] MEDS: KETOROLAC 30 MG/ML 1ML VIAL IV SCH (03:13)
[2022-12-21] MEDS: METOCLOPRAMIDE INJ 10MG/2ML VIAL IV PRN (04:39)
[2022-12-21 06:00] VITALS: BP 108/60; O2SAT 100
[2022-12-21 06:21] LABS: HEMATOCRIT 25.1 % (36.0-47.0); MEAN CORPUSCULAR HEMOGLOBIN 27.6 pg (27.0-33.0); MEAN CORPUSCULAR HGB CONC 30.7 g/dl (32.0-36.5); PLATELET COUNT, AUTOMATED 135 10^3/uL (150-450); RED BLOOD COUNT 2.79 10^6/uL (4.00-5.40); WHITE BLOOD COUNT 14.7 10^3/uL (4.0-10.0)
[2022-12-21 06:25] LABS: HEMOGLOBIN 7.7 g/dl (12.0-15.5)
[2022-12-21] MEDS ORDERED: IBUP80TA PO (08:03)
[2022-12-21] MEDS ORDERED: COLA100C5 PO (08:03)
[2022-12-21] MEDS ORDERED: PERCOCET PO (08:03)
[2022-12-21] MEDS: DOCUSATE SODIUM 100MG CAPSULE PO SCH ×2 (09:28→21:10)
[2022-12-21] MEDS: PRENATAL VITAMINS CHEWABLE TABLET PO SCH (09:28)
[2022-12-21 10:00] VITALS: BP 112/53; O2SAT 98
[2022-12-21] MEDS: IBUPROFEN 800 MG TAB PO SCH ×2 (11:14→18:24)
[2022-12-21] MEDS: PERCOCET 5MG/325MG TAB PO PRN (17:43)
[2022-12-21 18:00] VITALS: BP 115/59; O2SAT 96
[2022-12-21] MEDS: guaiFENesin SYRUP 200MG 10ML UDC PO PRN (18:25)
[2022-12-21 22:00] VITALS: BP 114/58; O2SAT 96
[2022-12-22] MEDS: PERCOCET 5MG/325MG TAB PO PRN ×2 (01:20→08:21)
[2022-12-22 02:00] VITALS: BP 105/53; O2SAT 96
[2022-12-22] MEDS: IBUPROFEN 800 MG TAB PO SCH ×2 (02:38→10:53)
[2022-12-22] MEDS: guaiFENesin SYRUP 200MG 10ML UDC PO PRN (03:09)
[2022-12-22 06:00] VITALS: BP 101/51; O2SAT 96
[2022-12-22] MEDS: DOCUSATE SODIUM 100MG CAPSULE PO SCH (08:20)
[2022-12-22] MEDS: PRENATAL VITAMINS CHEWABLE TABLET PO SCH (08:20)
[2022-12-22] MEDS ORDERED: MEASLES,MUMPS,RUBELLA VACCINE INJ (MMR-II) SC.IMMUN ONE (09:00)
[2022-12-22 10:00] VITALS: BP 128/66; O2SAT 96
== END 2022-12-22 11:15 | disposition home or self-care (01) | DRG 788 ==
LOC: M LDI 05:07 → M OBS 10:42
PROVIDERS: ADMIT Obstetrics & Gynecology; ATTEND Obstetrics & Gynecology
PROC: 10D00Z1 Extraction of Products of Conception, Low, Open Approach (ICD-10-PCS; principal; 2022-12-20 07:30)
DX: O34.211 Maternal care for low transverse scar from previous cesarean delivery (principal); Z37.0 Single live birth; Z3A.39 39 weeks gestation of pregnancy

== ENCOUNTER → 2023-05-03 | Outpatient (REF) | payer OTHER | LOC: M SFHCWAGY 17:18 | PROVIDERS: ATTEND Obstetrics & Gynecology | DX: Z12.4 Encounter for screening for malignant neoplasm of cervix (principal) ==

== ENCOUNTER → 2025-05-15 | Outpatient (REF) | payer OTHER ==
[2025-05-18 11:42] LABS: HPV APTIMA Not Detected (Not Detected)
== END ==
LOC: M SFHCWAGY 10:35
PROVIDERS: ATTEND Physician Assistant
DX: Z12.4 Encounter for screening for malignant neoplasm of cervix (principal)
CPT/HCPCS: 87624; G0123